=== PATIENT | female | born 1965 | race Caucasian/White ===

== ENCOUNTER → 2016-11-30 | Day surgery (SDC) | payer OTHER ==
--- NOTE | 2016-11-29 23:30 | HHI.HP ---
HPI Chief Complaint uterine fibroids, dysfunctional uterine bleeding Date Seen: Nov 30, 2016 Travel History International Travel<30 Days: No Contact w/Intl Traveler<30Days: No Known Affected Area: No History of Present Illness HPI The patient has developed abnormal uterine bleeding. A pelvic ultrasound revealed a fibroid uterus, An endometrial biopsy revealed normal tissue. The patient has requested surgical treatment. Para: 0 : 0 Miscarriage: 0 : 0 History Past Medical History Narrative Medical Smoker Depression Anxiety Obstetric History Obstetric History Nulligravida Past Surgical History Narrative Surgical 1977 -- appendectomy 1985 --diagnostic laparoscopy (endometriosis) Family History Family History: Negative Social History Alcohol Use: No Tobacco Use: Yes (1/2 ppd for 10 years) Substance Abuse: No Allergies-Medications (Allergen,Severity, Reaction): Coded Allergies: Sulfa (Verified Allergy, Severe, HIVES, 02/06/09) Home Meds Reported Medications Miscellaneous (No Current Meds) Misc Ref 0 02/06/09 Discontinued Scripts Methylprednisolone (Medrol Dosepak)4 Mg Pak4 Mg PO DIRECTED #1 TAKE DIRECTED Prov:Rustam Burleson MD 11/21/11 Acetaminophen/Codeine (Tylenol #3)300 Mg/30 Mg Tab1 Tab PO Q6HPRN #20 Ref 0 Prov:Rustam Winters Jr, MD 02/06/09 Doxycycline Hyclate 100 mg 100 Mg Tab1 Tab PO BID 10 Days Ref 0 Prov:Rustam Winters Jr, MD 02/06/09 Narrative Medication Adderall Prozac Review of Systems General / Constitutional: No: Fever, Weight Gain, Chills, Other Eyes: No: Diploplia, Blurred Vision, Visual changes, Pain, Photophobia HENT: No: Headaches, Vertigo, Lightheadedness Cardiovascular: No: Irregular Rhythm, Chest Pain or Discomfort, Palpitations, Tachycardia, Syncope, Varicosities, Edema, Cyanosis Respiratory: No: Cough, Short of Breath, Other Gastrointestinal: No: Nausea, Vomiting, Diarrhea Genitourinary: Pelvic Pain, Menorrhagia, Vaginal Bleeding, No: Decreased Urinary Output, Oliguria Musculoskeletal: No: Limited ROM, Weakness, Cramping, Edema, Pain Skin: No Rash, No Itching, No Dryness, No Lumps, No Change in Pigmentation, No Change in Nails, No Alopecia, No Lesions Neurologic: No: Weakness, Dizziness, Syncope, Focal Abnormalities, Coordination Problem, Headache, Slurred Speech, Seizures Psychiatric: No: Depression, Suicidal Ideations, Homicidal Ideation Endocrine: No: Heat Intolerance, Cold Intolerance, Polydipsia, Polyuria, Other Physical Exam Narrative GENERAL: Well-nourished, well-developed patient. SKIN: Warm and dry. HEAD: Normocephalic and atraumatic. EYES: No scleral icterus. No injection or drainage. ENT: No nasal drainage noted. Mucous membranes pink. Airway patent. NECK: Supple, trachea midline. No JVD. CARDIOVASCULAR: Regular rate and rhythm without murmurs, gallops, or rubs. RESPIRATORY: Breath sounds equal bilaterally. No accessory muscle use. BREASTS: Bilateral exam showed no masses , no retractions, no nipple discharge. ABDOMEN/GI: Abdomen soft, non-tender, bowel sounds present, no rebound, no guarding GENITOURINARY: External Genitalia: intact and normal in appearance Uterus: normal size uterus, no adnexal masses EXTREMITIES: No cyanosis or edema. BACK: Nontender without obvious deformity. No CVA tenderness. NEUROLOGICAL: Awake and alert. Motor and sensory grossly within normal limits. Five out of 5 muscle strength in all muscle groups. Normal speech. Data Data Vital Signs Reviewed: Yes Assessment/Plan Problem List: (1) Dysfunctional uterine hemorrhage (2) Fibroids, intramural (3) Dysmenorrhea (4) Acute pelvic pain, female Assessment and Plan 1. 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 discussed / reviewed the procedure -- hysteroscopy, D&C, endometrial ablation 3. discussed the risks, benefits and alternatives of the procedure with the patient 4. discussed the risk of infection, bleeding, damage to vaginal sandhu and to internal organs if uterine perforation occurs (bowel, bladder, vessels, ureters , nerves), need for further treatment or procedures. 5. patient's questions were answered 6. she verbalized understanding 7. informed consent was obtained Tonya Castro MD Nov 29, 2016 23:30
[~2016-11-30] MED LIST: CYCL5TAB PO; DOXY100T PO; KETOROLAC TROMETHAMINE 30 MG/ML (IVP) VIAL IV PUSH ONE; LACTATED RINGER'S 1000 ML INJ 1,000 ML ONE; MEDR4PAK3 PO; MIDAZOLAM HCL 2 MG/2 ML VIAL ONE; ONDANSETRON HCL 4 MG/2 ML VIAL IV PUSH ONE; PROPOFOL 200 MG/20 ML AMP IV ONE; TYLE3 PO; Z.0.NO CURRENT MEDS; ceFAZolin 2 GM PREMIX 50 ML ONE
--- NOTE | 2016-11-30 07:45 | PD.OP ---
Operative Report Date of Surgery: Nov 30, 2016 Preoperative Diagnosis: (1) Dysfunctional uterine hemorrhage (2) Fibroids, intramural (3) Dysmenorrhea (4) Acute pelvic pain, female Postoperative Diagnosis: (1) Dysfunctional uterine hemorrhage (2) Fibroids, intramural (3) Dysmenorrhea (4) Acute pelvic pain, female (5) Vulvar lesion Procedure: 1. hysteroscopy 2. D&C 3. endometrial ablation (L=4.0cm; W=4.7cm; P= ) 4. vulvar biopsy Anesthesia: General Surgeon: Tonya Castro Loan Operations Specialist(s): Staff Operation and Findings: IVF: 500 ml of LR + IV antibiotics given prior to surgery UO: 75 ml EBL: < 25 ml Findings: normal uterine cavity Specimens: 1. vulvar biopsy (left) 2. endometrial curettings Complications: none Condition: stable Disposition: PACU Description of the procedure: The risks, benefits and alternatives of the procedure were discussed with the patient. Her questions were answered. The patient signed informed consent and wished to proceed. She was taken to the operating room with her IV running. She was placed in the supine position and was given general anesthesia without difficulties or complications. The patient was placed in the dorsal lithotomy position and was prepped and draped in the usual sterile fashion. As requested by patient due to pain, a left vulvar lesion was removed without any difficulties or complications. Next, a bivalve speculum was introduced inside the patient's vagina. The anterior aspect of the cervix was grasped with a single tooth tenaculum for manipulation. The cervix was carefully dilated; the uterus sounded and the cervix was measured. A 5 mm Myosure hysteroscope was introduced inside the patient's uterus. The cavity was noted to be within normal limits. A careful curettage was done with a sharp curet. The tissues were sent to pathology. Endometrial ablation was done following [employer] protocol without any difficulties or complications. All the instruments were removed from the patient's uterus. A figure eight stitch was placed at the tenaculum site for hemostasis. All the instruments were removed from the patient's vagina. She tolerated the procedure well; she was successfully awaken from general anesthesia and was transferred to PACU in stable condition. Note: I discussed the surgical findings and surgical procedures with patient's family. Their questions were answered. They verbalized understanding. Tonya Castro MD Nov 30, 2016 07:45
== END | disposition home or self-care (01) ==
LOC: ESDC 07:29
PROVIDERS: ATTEND Obstetrics & Gynecology
DX: N93.8 Other specified abnormal uterine and vaginal bleeding (principal); D25.1 Intramural leiomyoma of uterus; N94.6 Dysmenorrhea, unspecified; R10.2 Pelvic and perineal pain; D28.0 Benign neoplasm of vulva
CPT/HCPCS: 00940; 00952; 56605; 58563; 88305; J0690; J1885; J2250; J2405; J3010; J7120